=== PATIENT | female | born 1995 | race American Indian/Alaskan Native ===

== ENCOUNTER 2017-07-13 06:39 | Inpatient (IN) | payer OTHER, MEDICAID ==
[2017-07-13] MEDS ORDERED: SUBLIMAZE IV PRN (07:30)
[2017-07-13] MEDS ORDERED: BRETHINE SUB-Q PRN (07:30)
[2017-07-13] MEDS ORDERED: MINERAL OIL PO PRN (07:30)
[2017-07-13] MEDS ORDERED: ePHEDrine SULFATE IV PRN (07:30)
[2017-07-13] MEDS ORDERED: XYLOCAINE 2% INFILTRATI ONE (07:30)
[2017-07-13] MEDS ORDERED: ZOFRAN IV PRN (07:30)
--- NOTE | 2017-07-13 07:36 | History and Physical Report ---
History of Present Illness Date of examination: 07/13/17 Chief complaint: labor contractions History of present illness: EDC by third trimester u/s 07/17/17 Past History : 2 Term Births: 1 Premature Births: 0 Living Children: 1 Para: 1 Mult. Births: 0 Prev : 0 Prev. attempt? 0 Aborta: 0 Elect. Ab: 0 Spont. Ab: 0 Ectopics: 0 # 1 Delivery date: 08/11/2016 Weeks Gestation: 39 Delivery type: Vaginal Anesthesia type: none Delivery location: [facility] Infant Sex: male weight: 6.13 Comments: none Risk Factors: Smoked Tobacco Use: Never smoker Smokeless Tobacco Use: Never Passive smoke exposure: no Drug use: no HIV high-risk behavior: low risk Caffeine use: <1 drinks per day Alcohol use: no Exercise: yes Seatbelt use: 100 % Family History Risk Factors: Family History of WI in females < 65 years old: no Family History of WI in males < 55 years old: no Past Medical History: Reviewed history from 01/23/2016 and no changes required: Negative Past Medical History Past Surgical History: Reviewed history from 01/23/2016 and no changes required: Negative Past Surgical History Past Medical History Abnormal PAP: negative LIZBET Exposure: negative Infertility: negative Uterine Anomaly: negative Uterine Surgery (not C/S): negative Other Gynecologic Problems: negative Social Hx: Patient is single Smoking History: Patient has never smoked. Infection History Hx of STD: none HIV Risk Eval: low risk Hepatitis B Risk Eval: low risk Personal hx. of genital herpes: no Partner hx. of genital herpes: no Rash, Viral, or Febrile illness since last LMP? no Varicella/Chicken Pox Status: non-immune TB Risk: no Genetic History Congenital Heart Defect: Mom: no Dad: no Jamal Disease: Mom: no Dad: no Thalassemia Mom: no Dad: no Neural Tube Defect Mom: no Dad: no Down's Syndrome Mom: no Dad: no Volodymyr-Sachs Mom: no Dad: no Sickle Cell Disease/Trait Mom: no Dad: no Hemophilia Mom: no Dad: no Muscular Dystrophy Mom: no Dad: no Cystic Fibrosis Mom: no Dad: no Isabela Chorea Mom: no Dad: no Mental Retardation Mom: no Dad: no Fragile X Mom: no Dad: no Other Genetic/Chromosomal Disorder Mom: no Dad: no Child w/other defect Mom: no Dad: no Enviromental Exposures Xray Exposure: no Medication, drug, or alcohol use since LMP: no Chemical/Other Exposure: no Exposure to Cat Liter: no Hx of Parvovirus (Fifth Disease): no Occupational Exposure to Children: none Active Medications: TERCONAZOLE 0.8 % CREA (TERCONAZOLE) Insert 1 applicatorful intravaginally at bedtime for 3 consecutive days. Current Allergies: No known allergies Past History Past Medical History: no pertinent history - Obstetrical History Expected Date of Delivery: 07/17/17 Actual Gestation: 39 Week(s) 3 Day(s) : 2 Para: 1 Hx # Term Pregnancies: 1 Number of Pregnancies: 0 Spontaneous Abortions: 0 Induced : 0 Number of Living Children: 1 Medications and Allergies Allergies Allergy/AdvReac Type Severity Reaction Status Date / Time No Known Allergies Allergy Verified 08/02/16 16:28 Home Medications Medication Instructions Recorded Confirmed Last Taken Type Ibuprofen [Motrin 800 MG tab] 800 mg PO TID PRN #30 tablet 08/11/16 Unknown Rx Lidocain2.5%/Prilocai2.5% [Emla] 5 gm TP PRN #1 tube 08/11/16 Unknown Rx Review of Systems All systems: negative - Vital Signs Vital signs: Vital Signs Temp Pulse BP 96.7 F L 91 H 125/69 07/13/17 07:00 07/13/17 07:00 07/13/17 07:00 Temp Pulse Resp BP Pulse Ox 96.7 F L 94 H 136/81 99 07/13/17 07:00 07/13/17 07:27 07/13/17 07:16 07/13/17 07:27 - Physical Exam Breasts: Positive: normal Cardiovascular: Regular rate Lungs: Positive: Clear to auscultation, Normal air movement Abdomen: Positive: normal appearance, soft Genitourinary (Female): Positive: normal external genitalia, normal perenium Vulva: both: normal Vagina: Positive: normal moisture Uterus: Positive: normal size, normal contour Anus/Rectum: Positive: normal perianal skin Extremities: Positive: normal - Obstetrical Uterine Contraction Monitor Mode: External Cervical Dilatation: 5 Cervical Effacement Percentage: 80 station: -2 Uterine Contraction Frequency (min): 2-3 Uterine Contraction Duration: 50-90 Uterine Contraction Pattern: Regular Uterine Tone Measurement Phase: Contraction Uterine Contraction Intensity: Moderate Results Result Diagrams: 07/13/17 08:00 All other labs normal. Patient: SABINO TAN ID: [id number] Note: All result statuses are Final unless otherwise noted. Tests: (1) Profile I ([id number]) HBsAg Screen Negative Negative *1 Rubella Antibodies, IgG 4.47 index Immune >0.99 *2 Non-immune <0.90 Equivocal 0.90 - 0.99 Immune >0.99 ABO Grouping A *3 Rh Factor Positive *4 Please note: Prior records for this patient's ABO / Rh type are not available for additional verification. Antibody Screen Negative Negative *5 RPR Non Reactive Non Reactive *6 WBC [H] 12.3 x10E3/uL 3.4-10.8 *7 RBC 4.03 x10E6/uL 3.77-5.28 *8 Hemoglobin 12.0 g/dL 11.1-15.9 *9 Hematocrit 36.3 % 34.0-46.6 *10 MCV 90 fL 79-97 *11 MCH 29.8 pg 26.6-33.0 *12 MCHC 33.1 g/dL 31.5-35.7 *13 RDW 14.0 % 12.3-15.4 *14 Platelets 265 x10E3/uL 150-379 *15 Neutrophils 76 % *16 Lymphs 17 % *17 Monocytes 6 % *18 Eos 1 % *19 Basos 0 % *20 ! Immature Cells <No Reported Value> *21 Neutrophils (Absolute) [H] 9.2 x10E3/uL 1.4-7.0 *22 Lymphs (Absolute) 2.1 x10E3/uL 0.7-3.1 *23 Monocytes(Absolute) 0.7 x10E3/uL 0.1-0.9 *24 Eos (Absolute) 0.1 x10E3/uL 0.0-0.4 *25 Baso (Absolute) 0.0 x10E3/uL 0.0-0.2 *26 ! Immature Granulocytes 0 % *27 ! Immature Grans (Abs) 0.0 x10E3/uL 0.0-0.1 *28 ! NRBC <No Reported Value> *29 Hematology Comments: <No Reported Value> *30 Tests: (2) Cystic Fibrosis Profile ([id number]) ! CF, Screen Comment: *31 RESULTS: Negative for 32 mutations analyzed INTERPRETATION: This individual is negative for the mutations analyzed. This negative result may need further interpretation depending on the clinical indication. This result reduces but does not eliminate the risk to be a CF carrier. COMMENTS: The detection rate varies with ethnicity and is listed below. The presence of an undetected mutation in the CF gene cannot be ruled out. In the absence of family history, the remaining risk that a person with a negative result could have at least one CF mutation is listed in the table. If there is a family history of CF, these risk figures do not apply. As detailed information regarding this individual's family history would permit a more accurate assessment of this individual's risk to be a carrier of cystic fibrosis, please contact Choozle at for a revised report. Mutation Detection Detection rates are based on mutation Rates among Ethnic frequencies in patients affected with Groups cystic fibrosis. Among individuals with an atypical or mild presentation (e.g. congenital absence of the vas deferens, pancreatitis) detection rates may vary from those provided here: Carrier risk reduction when no family history Detection Ethnicity Rate Ashkenazi 11/28 to 97% Confucianist 11/27 to 90% (non-) -Serbian to 69% to 73% to 55% This interpretation is based on the clinical and family relationship information provided and the current understanding of the molecular genetics of this condition. MUTATIONS ANALYZED: G85E V520F J5952R 2183AA to G R117H G542X Y2361F 2184delA R334W S549N 394delTT 2789+5G to A R347H S549R 621+1G to T 3120+1G to A R347P G551D 711+1G to T 3659delC A455E R553X 1078delT 3849+10kbC to T SjesjN893 R560T 1717-1G to A 3876delA PervjC900 Q0247V 1898+1G to A 3905insT METHODS/LIMITATIONS: DNA is isolated from the sample and tested for the 32 CF mutations on the [place] Array Platform ([employer]). Regions of the CFTR gene are amplified enzymatically and subjected to a solution-phase multiplex allele-specific primer extension with subsequent hybridization to a bead array and fluorescence detection. Polymorphisms F508C, I506V and I507V are included in this panel to rule out false positive disfmR914 homozygotes. Reflex testing of 5T is included in the panel for R117H interpretation. False positive or negative results may occur for reasons that include genetic variants, blood transfusions, bone marrow transplantation, erroneous representation of family relationships or contamination of a sample with maternal cells. REFERENCES: 1. Updates on Carrier Screening for Cystic Fibrosis. (2011) Am J Ob Gynecol 117(4):0394-6293 2. See et al. (2004) Kat Med 6:387-91 3. Rony, et al. (2002) Kat Med 4:379-391 4. Preconception and carrier screening for cystic fibrosis: (2001)ACOG.ACMG publication Results Released By: Mj Portillo M.D., Frame Stylist Report Released By: Mj Portillo M.D., Frame Stylist ! Comment: SPRCS *32 The assay provides information intended to be used for carrier screening in adults of reproductive age, as an aid in screening, and as a confirmatory test for another medically established diagnosis in newborns and children. The test is not indicated for use in diagnostic testing, pre-implantation screening, or for any stand-alone diagnostic purposes without confirmation by another medically established diagnostic product or procedure. Tests: (3) HB Solu + Rflx Fra ([id number]) Hemoglobin (Hgb) Solubility Negative Negative *33 Tests: (4) Panel 575913 (580054) HIV Screen 4th Generation wRfx Non Reactive Non Reactive *34 Tests: (5) HCV Ab w/Rflx to Verification (253210) ! HCV Ab <0.1 s/co ratio 0.0-0.9 *35 Assessment and Plan 22 y/o @ 39+3, GBS neg, in active labor. orders in EMR. Anticipate . Dr. Haynes aware of patient's admission and status. - Patient Problems (1) 39 weeks gestation of Current Visit: No Status: Acute (2) Active labor Onset Date: 08/11/16 Current Visit: No Status: Acute
[2017-07-13] MEDS ORDERED: PITOCin/NS 20 UNIT/1000ML DRIP 20 UNITS/1,000 ML BAG IV SCH ×2 (08:00→15:50)
[2017-07-13] MEDS ORDERED: PITOCin/NS 30 UNIT/500ML 30 UNITS/500 ML BAG IV SCH (08:00)
[2017-07-13] MEDS ORDERED: LACTATED RINGERS 1,000 ML IV SCH (08:00)
[2017-07-13 08:25] LABS: Hematocrit 35.3 % (30.3-42.9); Hemoglobin 11.5 gm/dl (10.1-14.3); Mean Corpuscular HGB Conc 33 % (30-34); Mean Corpuscular Hemoglobin 28 pg (28-32); Mean Corpuscular Volume 86 fl (79-97); Platelet Count 261 K/mm3 (140-440); Red Blood Count 4.09 M/mm3 (3.65-5.03); White Blood Count 9.3 K/mm3 (4.5-11.0)
--- NOTE | 2017-07-13 10:22 | Progress Note ---
Assessment and Plan patient tolerating labor well, SVE 7/80/-1, AROM clear fluid. Continue current management, anticipate delivery. - Patient Problems (1) 39 weeks gestation of Current Visit: Yes Status: Acute (2) Active labor Onset Date: 08/11/16 Current Visit: Yes Status: Acute Subjective - Subjective Date of service: 07/13/17 Principal diagnosis: labor @ 39+3 Interval history: EDC by third trimester u/s 07/17/17 Past History : 2 Term Births: 1 Premature Births: 0 Living Children: 1 Para: 1 Mult. Births: 0 Prev : 0 Prev. attempt? 0 Aborta: 0 Elect. Ab: 0 Spont. Ab: 0 Ectopics: 0 # 1 Delivery date: 08/11/2016 Weeks Gestation: 39 Delivery type: Vaginal Anesthesia type: none Delivery location: [facility] Infant Sex: male weight: 6.13 Comments: none Risk Factors: Smoked Tobacco Use: Never smoker Smokeless Tobacco Use: Never Passive smoke exposure: no Drug use: no HIV high-risk behavior: low risk Caffeine use: <1 drinks per day Alcohol use: no Exercise: yes Seatbelt use: 100 % Family History Risk Factors: Family History of VT in females < 65 years old: no Family History of VT in males < 55 years old: no Past Medical History: Reviewed history from 01/23/2016 and no changes required: Negative Past Medical History Past Surgical History: Reviewed history from 01/23/2016 and no changes required: Negative Past Surgical History Past Medical History Abnormal PAP: negative LIZBET Exposure: negative Infertility: negative Uterine Anomaly: negative Uterine Surgery (not C/S): negative Other Gynecologic Problems: negative Social Hx: Patient is single Smoking History: Patient has never smoked. Infection History Hx of STD: none HIV Risk Eval: low risk Hepatitis B Risk Eval: low risk Personal hx. of genital herpes: no Partner hx. of genital herpes: no Rash, Viral, or Febrile illness since last LMP? no Varicella/Chicken Pox Status: non-immune TB Risk: no Genetic History Congenital Heart Defect: Mom: no Dad: no Jamal Disease: Mom: no Dad: no Thalassemia Mom: no Dad: no Neural Tube Defect Mom: no Dad: no Down's Syndrome Mom: no Dad: no Volodymyr-Sachs Mom: no Dad: no Sickle Cell Disease/Trait Mom: no Dad: no Hemophilia Mom: no Dad: no Muscular Dystrophy Mom: no Dad: no Cystic Fibrosis Mom: no Dad: no [place] Chorea Mom: no Dad: no Mental Retardation Mom: no Dad: no Fragile X Mom: no Dad: no Other Genetic/Chromosomal Disorder Mom: no Dad: no Child w/other defect Mom: no Dad: no Enviromental Exposures Xray Exposure: no Medication, drug, or alcohol use since LMP: no Chemical/Other Exposure: no Exposure to Cat Liter: no Hx of Parvovirus (Fifth Disease): no Occupational Exposure to Children: none Active Medications: TERCONAZOLE 0.8 % CREA (TERCONAZOLE) Insert 1 applicatorful intravaginally at bedtime for 3 consecutive days. Current Allergies: No known allergies Patient reports: contractions Objective - Vital Signs Vital Signs: Vital Signs - 12hr 07/13/17 07/13/17 07/13/17 07:00 07:01 07:04 Temperature 96.7 F L Pulse Rate 90 86 90 Respiratory Rate Blood Pressure 152/84 125/69 Blood Pressure 125/69 [Left] Blood Pressure [Right] O2 Sat by Pulse 98 Oximetry 07/13/17 07/13/17 07/13/17 07:06 07:07 07:12 Temperature Pulse Rate 91 H 87 91 H Respiratory Rate Blood Pressure Blood Pressure [Left] Blood Pressure [Right] O2 Sat by Pulse 93 98 98 Oximetry 07/13/17 07/13/17 07/13/17 07:16 07:17 07:22 Temperature Pulse Rate 94 H 103 H 90 Respiratory Rate Blood Pressure 136/81 Blood Pressure [Left] Blood Pressure [Right] O2 Sat by Pulse 99 95 Oximetry 07/13/17 07/13/17 07/13/17 07:27 07:42 07:46 Temperature Pulse Rate 94 H 88 93 H Respiratory Rate Blood Pressure Blood Pressure [Left] Blood Pressure [Right] O2 Sat by Pulse 99 99 94 Oximetry 07/13/17 07/13/17 07/13/17 07:47 07:51 07:52 Temperature Pulse Rate 95 H 93 H 88 Respiratory Rate Blood Pressure Blood Pressure [Left] Blood Pressure [Right] O2 Sat by Pulse 97 89 97 Oximetry 07/13/17 07/13/17 07/13/17 07:57 08:02 08:04 Temperature 97.0 F L Pulse Rate 84 86 82 Respiratory 16 Rate Blood Pressure 118/74 Blood Pressure [Left] Blood Pressure 118/74 [Right] O2 Sat by Pulse 95 100 Oximetry 07/13/17 07/13/17 07/13/17 08:07 08:11 08:12 Temperature Pulse Rate 87 87 86 Respiratory Rate Blood Pressure Blood Pressure [Left] Blood Pressure [Right] O2 Sat by Pulse 99 94 96 Oximetry 07/13/17 07/13/17 07/13/17 08:17 08:21 08:22 Temperature Pulse Rate 86 96 H 93 H Respiratory Rate Blood Pressure Blood Pressure [Left] Blood Pressure [Right] O2 Sat by Pulse 97 91 98 Oximetry 07/13/17 07/13/17 07/13/17 08:27 08:32 08:37 Temperature Pulse Rate 104 H 86 89 Respiratory Rate Blood Pressure Blood Pressure [Left] Blood Pressure [Right] O2 Sat by Pulse 96 97 96 Oximetry 07/13/17 07/13/17 07/13/17 08:42 08:47 08:52 Temperature Pulse Rate 95 H 89 91 H Respiratory Rate Blood Pressure Blood Pressure [Left] Blood Pressure [Right] O2 Sat by Pulse 96 97 97 Oximetry 07/13/17 07/13/17 08:57 09:02 Temperature Pulse Rate 87 98 H Respiratory Rate Blood Pressure Blood Pressure [Left] Blood Pressure [Right] O2 Sat by Pulse 99 99 Oximetry - Exam Breasts: normal Cardiovascular: Regular rate Lungs: Clear to auscultation, Normal air movement Abdomen: Present: normal appearance, soft Vulva: both: normal Uterus: Present: normal FHR: auscultation normal, category 1 Uterine Contraction Monitor Mode: External Cervical Dilatation: 7 Cervical Effacement Percentage: 80 station: -1 Uterine Contraction Pattern: Regular Uterine Tone Measurement Phase: Contraction Uterine Contraction Intensity: Strong/Firm Extremities: normal Deep Tendon Reflex Grade: Normal +2 - Labs Labs: Laboratory Results - last 24 hr 07/13/17 07/13/17 08:00 08:00 WBC 9.3 RBC 4.09 Hgb 11.5 Hct 35.3 MCV 86 MCH 28 MCHC 33 RDW 15.0 Plt Count 261 Blood Type A POSITIVE Antibody Screen Negative
--- NOTE | 2017-07-13 13:30 | Procedure Note ---
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 Infant placed skin to skin on mother' s abd, cord clamped and cut. Cord blood collected. Placenta del intact and complete. no lacerations to repair. Pit to IVF. EBL 300, wt 7#7oz, 8/9 apgars. Mother and LDR stable. - A at 1 minute: 8 at 5 minutes: 9 Infant Gender: Male (7#7oz)
[2017-07-13] MEDS ORDERED: BENADRYL PO PRN (15:50)
[2017-07-13] MEDS ORDERED: MILK OF MAGNESIA PO PRN (15:50)
[2017-07-13] MEDS ORDERED: SODIUM CHLORIDE FLUSH SYRINGE 10 ML IV NR (15:50)
[2017-07-13] MEDS ORDERED: PHENERGAN PO PRN (15:50)
[2017-07-13] MEDS ORDERED: TUCKS PAD TP PRN (15:50)
[2017-07-13] MEDS ORDERED: LANSINOH TP PRN (15:50)
[2017-07-13] MEDS ORDERED: NORCO 5/325 PO PRN (15:50)
[2017-07-13] MEDS ORDERED: DULCOLAX PR PRN (15:50)
[2017-07-13] MEDS ORDERED: MOTRIN PO SCH (15:50)
[2017-07-13] MEDS ORDERED: TYLENOL PO PRN (15:50)
[2017-07-13] MEDS: MOTRIN PO SCH (23:42)
[2017-07-13] MEDS: COLACE PO SCH (23:42)
[2017-07-14 01:34] LABS: Hematocrit 30.6 % (30.3-42.9); Hemoglobin 10.3 gm/dl (10.1-14.3)
[2017-07-14] MEDS: MOTRIN PO SCH ×3 (06:17→22:18)
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
[2017-07-14] MEDS ORDERED: PRENATAL VITAMIN PO SCH (10:00)
[2017-07-14] MEDS ORDERED: BOOSTRIX IM ONE (13:30)
[2017-07-14] MEDS: COLACE PO SCH (22:19)
[2017-07-15] MEDS: MOTRIN PO SCH (05:29)
[2017-07-15 11:45] VITALS: BP 110/68
== END 2017-07-15 11:30 | disposition home or self-care (01) | DRG 775 ==
LOC: TRG 06:39 → LD 07:35 → OB 14:54
PROVIDERS: ADMIT Obstetrics & Gynecology; ATTEND Obstetrics & Gynecology
PROC: 10E0XZZ Delivery of Products of Conception, External Approach (ICD-10-PCS; principal; 2017-07-13)
PROC: 3E0234Z Introduction of Serum, Toxoid and Vaccine into Muscle, Percutaneous Approach (ICD-10-PCS; 2017-07-13)
DX: O80 Encounter for full-term uncomplicated delivery (principal); Z37.0 Single live birth; Z3A.39 39 weeks gestation of pregnancy; Z79.899 Other long term (current) drug therapy; Z23 Encounter for immunization
CPT/HCPCS: 36415; 85014; 85018; 85027; 86592; 86850; 86900; 86901; 99211; A6250; G0463; J2590; J3010; J7120

== ENCOUNTER 2019-05-12 09:15 | Emergency (ER) | payer MEDICAID, OTHER ==
[2019-05-12 09:30] VITALS: BP 115/79
[2019-05-12] MEDS ORDERED: IBUPROFEN PO ONE (10:34)
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
--- NOTE | 2019-05-12 11:09 | XRay Report ---
RIGHT LITTLE FINGER 3 VIEWS INDICATION / CLINICAL INFORMATION: Injury with right little finger pain and swelling. COMPARISON: None available. FINDINGS: BONES / JOINT(S): There is posterior dislocation of the middle phalanx of the little finger at the PI P joint. There is an associated minimally displaced fracture involving the base of the middle phalanx posteriorly. No significant arthritis. SOFT TISSUES: No significant abnormality. ADDITIONAL FINDINGS: None. IMPRESSION: Posterior dislocation/fracture involving the PIP joint of the little finger. Signer Name: Patrick Williamson MD Signed: 05/12/2019 11:05 AM Workstation Name: [id number]
== END 2019-05-12 11:40 | disposition home or self-care (01) ==
LOC: ED 09:15
DX: S62.614A Displaced fracture of proximal phalanx of right ring finger, initial encounter for closed fracture (principal); Z79.899 Other long term (current) drug therapy; Y04.8XXA Assault by other bodily force, initial encounter; Y93.89 Activity, other specified; Y92.099 Unspecified place in other non-institutional residence as the place of occurrence of the external cause; Y99.8 Other external cause status
CPT/HCPCS: 99283

== ENCOUNTER 2021-07-26 21:45 | Inpatient (IN) | payer MEDICAID ==
[2021-07-27] MEDS ORDERED: TERBUTALINE 1 MG/1 ML INJ SUB-Q PRN (01:09)
[2021-07-27] MEDS ORDERED: CARBOPROST TROMETHAMINE 250 MCG/1 ML INJ IM PRN (01:09)
[2021-07-27] MEDS ORDERED: AMPICILLIN/NS 2 GM/100 ML 2 GM/100 ML BAG IV ONE (01:09)
[2021-07-27] MEDS ORDERED: ePHEDrine SULFATE 50 MG/1 ML INJ IV PRN (01:09)
[2021-07-27] MEDS ORDERED: ONDANSETRON 4 MG/2 ML INJ IV PRN ×2 (01:09→21:01)
[2021-07-27] MEDS ORDERED: miSOPROStol 200 MCG TAB PR PRN (01:09)
[2021-07-27] MEDS ORDERED: fentaNYL 100 MCG/2 ML INJ IV PRN (01:09)
[2021-07-27] MEDS ORDERED: NalbUPHINE 10 MG/1 ML INJ IV PRN (01:09)
[2021-07-27] MEDS ORDERED: MINERAL OIL 30 ML ORAL LIQD PO PRN (01:09)
[2021-07-27] MEDS ORDERED: LIDOCAINE (2%) 20 MG/1 ML VIAL 20 ML MDV INFILTRATI ONE (01:09)
[2021-07-27] MEDS ORDERED: LOPERAMIDE 2 MG CAP PO PRN (01:09)
[2021-07-27] MEDS ORDERED: OXYTOCIN 10 UNIT/1 ML INJ IM PRN (01:09)
[2021-07-27] MEDS ORDERED: METHYLERGONOVINE MALEATE 0.2 MG/ML VIAL IM PRN (01:09)
[2021-07-27] MEDS ORDERED: ACETAMINOPHEN 325 MG TAB PO PRN ×2 (01:09→21:01)
[2021-07-27] MEDS ORDERED: LACTATED RINGERS 1,000 ML IV SCH (01:15)
--- NOTE | 2021-07-27 01:17 | History and Physical Report ---
History of Present Illness Date of examination: 07/27/21 Chief complaint: decreased fm x 24hrs; oligohydramnios History of present illness: EDC Confirmation: 07/24/2021 Past History : 3 Term Births: 2 Premature Births: 0 Living Children: 2 Para: 2 Mult. Births: 0 Prev : 0 Prev. attempt? 0 Aborta: 0 Elect. Ab: 0 Spont. Ab: 0 Ectopics: 0 # 1 Delivery date: 08/11/2016 Weeks Gestation: 39 Delivery type: Vaginal Anesthesia type: none Delivery location: [facility] [place] Sex: male weight: 6.13 Comments: none # 2 Delivery date: 07/13/2017 Weeks Gestation: 39+3 Delivery type: Vaginal Anesthesia type: none Delivery location: [facility] [place] Infant Sex: male weight: 7.44 Name: Rai Comments: none Past Medical History: Reviewed history from 01/23/2016 and no changes required: Negative Past Medical History Past Surgical History: Reviewed history from 01/23/2016 and no changes required: Negative Past Surgical History Past Medical History Abnormal PAP: negative LIZBET Exposure: negative Infertility: negative Uterine Anomaly: negative Uterine Surgery (not C/S): negative Other Gynecologic Problems: negative Social Hx: Patient is single Smoking History: Patient has never smoked. Infection History Hx of STD: none HIV Risk Eval: low risk Hepatitis B Risk Eval: low risk Personal hx. of genital herpes: no Partner hx. of genital herpes: no Rash, Viral, or Febrile illness since last LMP? no Varicella/Chicken Pox Status: Immunized Genetic History Congenital Heart Defect: Mom: no Dad: no Jamal Disease: Mom: no Dad: no Thalassemia Mom: no Dad: no Neural Tube Defect Mom: no Dad: no Down's Syndrome Mom: no Dad: no Volodymyr-Sachs Mom: no Dad: no Sickle Cell Disease/Trait Mom: no Dad: no Hemophilia Mom: no Dad: no Muscular Dystrophy Mom: no Dad: no Cystic Fibrosis Mom: no Dad: no [place] Chorea Mom: no Dad: no Mental Retardation Mom: no Dad: no Fragile X Mom: no Dad: no Other Genetic/Chromosomal Disorder Mom: no Dad: no Child w/other defect Mom: no Dad: no Enviromental Exposures Xray Exposure: no Medication, drug, or alcohol use since LMP: no Chemical/Other Exposure: no Exposure to Cat Liter: no Hx of Parvovirus (Fifth Disease): no Occupational Exposure to Children: none Active Medications (reviewed today): PLUS 27-1 MG ORAL TABLET ( VIT-FE FUMARATE-FA) 1 po daily Current Allergies (reviewed today): No known allergies Past History Past Medical History: other (see HPI) Past Surgical History: other (see HPI) 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) Family/Genetic History: other (see HPI) Social history: no significant social history, lives with family - Obstetrical History Expected Date of Delivery: 07/24/21 Actual Gestation: 40 Week(s) 3 Day(s) : 3 Para: 2 Hx # Term Pregnancies: 2 Number of Pregnancies: 0 Spontaneous Abortions: 0 Induced : 0 Number of Living Children: 2 Medications and Allergies Allergies Allergy/AdvReac Type Severity Reaction Status Date / Time No Known Allergies Allergy Verified 08/02/16 16:28 Home Medications Medication Instructions Recorded Confirmed Last Taken Type Ibuprofen [Motrin 800 MG tab] 800 mg PO TID PRN #30 tablet 08/11/16 07/15/17 Unknown Rx Lidocain2.5%/Prilocai2.5% [Emla] 5 gm TP PRN #1 tube 08/11/16 07/15/17 Unknown Rx Lidocain2.5%/Prilocai2.5% [Emla] 5 gm TP ONCE PRN #1 tube 07/13/17 Unknown Rx Ibuprofen [Motrin 800 MG tab] 800 mg PO Q8HR PRN #30 tablet 05/12/19 Unknown Rx Active Meds: Active Medications Acetaminophen (Acetaminophen 325 Mg Tab) 650 mg PO Q4H PRN PRN Reason: Pain, Mild (1-3) Carboprost Tromethamine (Carboprost Tromethamine 250 Mcg/1 Ml Inj) 250 mcg IM ONCE PRN PRN Reason: Uterine Bleeding Ephedrine Sulfate (Ephedrine Sulfate 50 Mg/1 Ml Inj) 10 mg IV Q2M PRN PRN Reason: Hypotension Fentanyl (Fentanyl 100 Mcg/2 Ml Inj) 100 mcg IV Q2H PRN PRN Reason: Pain,Severe (7-10) LABOR PAIN Oxytocin/Sodium Chloride (Pitocin/Ns 30 Unit/500ml) 30 units in 500 mls @ 2 mls/hr IV TITR LYNN; Protocol Lactated Ringer's (Lactated Ringers) 1,000 mls @ 125 mls/hr IV DIRECT LYNN Oxytocin/Sodium Chloride (Pitocin/Ns 30 Unit/500ml) 30 units in 500 mls @ 40 mls/hr IV TITR LYNN; Protocol Ampicillin Sodium (Ampicillin/Ns 2 Gm/100 Ml) 2 gm in 100 mls @ 100 mls/hr IV ONCE ONE; Protocol Stop: 07/27/21 02:08 Ampicillin Sodium (Ampicillin/Ns 1 Gm/50 Ml) 1 gm in 50 mls @ 100 mls/hr IV Q4H LYNN; Protocol Lidocaine (Lidocaine (2%) 20 Mg/1 Ml Vial 20 Ml Mdv) 20 ml INFILTRATI ONCE ONE Stop: 07/27/21 01:10 Loperamide HCl (Loperamide 2 Mg Cap) 2 mg PO ONCE PRN PRN Reason: give with Hemabate Methylergonovine Maleate (Methylergonovine Maleate 0.2 Mg/Ml Vial) 0.2 mg IM ONCE PRN PRN Reason: Uterine Bleeding Mineral Oil (Mineral Oil 30 Ml Oral Liqd) 30 ml PO QHS PRN PRN Reason: Constipation Misoprostol (Misoprostol 200 Mcg Tab) 800 mcg UT ONCE PRN PRN Reason: Uterine Bleeding Nalbuphine HCl (Nalbuphine 10 Mg/1 Ml Inj) 10 mg IV Q2H PRN PRN Reason: Pain, Moderate (4-6) Ondansetron HCl (Ondansetron 4 Mg/2 Ml Inj) 4 mg IV Q8H PRN PRN Reason: Nausea And Vomiting Oxytocin (Oxytocin 10 Unit/1 Ml Inj) 10 unit IM ONCE PRN PRN Reason: Uterine Bleeding Terbutaline Sulfate (Terbutaline 1 Mg/1 Ml Inj) 0.25 mg SUB-Q ONCE PRN PRN Reason: Hyperstimulation/Hypertonicity Review of Systems All systems: negative - Vital Signs Vital signs: Vital Signs Pulse Pulse Ox 85 99 07/26/21 22:07 07/26/21 22:07 Temp Pulse Resp BP Pulse Ox 98.3 F 78 18 111/73 99 07/26/21 22:09 07/27/21 01:12 07/26/21 22:09 07/26/21 22:09 07/27/21 01:12 - Physical Exam Breasts: Positive: normal Cardiovascular: Regular rate Lungs: Positive: Normal air movement Abdomen: Positive: normal appearance, soft Genitourinary (Female): Positive: normal external genitalia, normal perenium Vulva: both: normal Vagina: Positive: normal moisture Uterus: Positive: normal size Anus/Rectum: Positive: normal perianal skin Extremities: Positive: normal - Obstetrical Uterine Contraction Monitor Mode: External Cervical Dilatation: 2.5 (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 Assessment and Plan 26y/o presented with decreased FM @ 40w3d. u/s findings show oligohydramnios ( JAE 3) EFW 6#3, vertex. Pt admitted for IOL. complicated by insufficient care starting @ 33wks until now d/t insurance issues. GBS unknown. Admission orders in EMR. - Patient Problems (1) GBS screening not performed Current Visit: Yes Status: Acute Plan to address problem: Ampicillin q4hrs until delivery (2) 40 weeks gestation of Current Visit: Yes Status: Acute (3) Limited care in third trimester Current Visit: Yes Status: Acute (4) Oligohydramnios Onset Date: ~07/27/21 Current Visit: Yes Status: Acute Qualifiers: Fetus number: single or unspecified fetus Trimester: third trimester Qualified Code(s): O41.03X0 - Oligohydramnios, third trimester, not applicable or unspecified
[2021-07-27 01:57] LABS: Hematocrit 37.2 % (30.3-42.9); Hemoglobin 12.7 gm/dl (10.1-14.3); Mean Corpuscular HGB Conc 34 % (30-34); Mean Corpuscular Volume 91 fl (79-97); Platelet Count 240 K/mm3 (140-440); Red Blood Count 4.11 M/mm3 (3.65-5.03); Red Cell Distribution Width 14.4 % (13.2-15.2)
[2021-07-27] MEDS ORDERED: OXYTOCIN DRIP 30 UNITS/500 ML BAG IV SCH ×2 (02:00)
--- NOTE | 2021-07-27 02:04 | Ultrasound Report ---
ULTRASOUND BIOPHYSICAL PROFILE INDICATION / CLINICAL INFORMATION: wellbeing. COMPARISON: None available. FINDINGS: BREATHING MOVEMENT = 2 GROSS BODY MOVEMENT = 2 TONE = 2 QUALITATIVE AMNIOTIC FLUID VOLUME = 0 TOTAL BIOPHYSICAL SCORE = 6/8 AMNIOTIC FLUID INDEX (cm) = 3.6 PRESENTATION: Cephalic. HEART RATE (beats per minute): 131 IMPRESSION: 1. Single live IUP in cephalic presentation. heart rate measures 131 bpm. 2. biophysical profile = 6/8 , due to diminished amniotic fluid volume. JAE measures 3.6 cm. Signer Name: Manuel Ruiz MD Signed: 07/27/2021 2:00 AM Workstation Name: [id number]
[2021-07-27] MEDS: AMPICILLIN/NS 1 GM/50 ML 1 GM/50 ML BAG IV SCH ×4 (07:56→19:31)
--- NOTE | 2021-07-27 07:57 | Progress Note ---
Assessment and Plan Pt lying in bed without complaints. Pt reports feeling mild contractions. Declines need for pharmacological pain management at this time. POC and nonpharmacological labor pain management options discussed with pt, FOC, and Julia RN at bedside. FHT's Cat 1 at this time and need for continuous monitoring reviewed. Risks and benefits of Pitocin IOL with GBS prophylaxis treatment discussed in length, including but not limited to risk for infection, distress, trauma, shoulder dystocia, delivery, maternal or . Pt verbalizes understanding and agrees to proceed with IOL at this time. Pt agrees to SVE; 4.5/50/-2. White vaginal discharge with tiny vaginal bleeding spots x2 visualized on exam glove. Vaginal discharge on glove shown to pt and RN and discussed. Plan to continue with IOL per protocol, monitor pt continuously, and notify provider with any changes in status. Julia RN and pt verbalize understanding and agree to POC. Anticipate . Dr. Espinoza made aware. - Patient Problems (1) 40 weeks gestation of Current Visit: Yes Status: Acute (2) GBS screening not performed Current Visit: Yes Status: Acute Plan to address problem: Ampicillin q4h until delivery (3) Limited care in third trimester Current Visit: Yes Status: Acute Plan to address problem: monitor closely and per protocol (4) Oligohydramnios Onset Date: ~07/27/21 Current Visit: Yes Status: Acute Qualifiers: Fetus number: single or unspecified fetus Trimester: third trimester Qualified Code(s): O41.03X0 - Oligohydramnios, third trimester, not applicable or unspecified Plan to address problem: continuous monitoring notify provider with any changes in status Subjective - Subjective Date of service: 07/27/21 Principal diagnosis: IUP @40.3 weeks, IOL for Oligo, GBS UNK, Insufficient PNC Patient reports: movement normal, contractions, no new complaints, no loss of fluid Objective - Vital Signs Vital Signs: Vital Signs - 12hr 07/26/21 07/26/21 07/26/21 22:07 22:08 22:09 Temperature 98.3 F Pulse Rate 85 82 82 Respiratory 18 Rate Blood Pressure 111/73 Blood Pressure [Left] Blood Pressure 111/73 [Right] O2 Sat by Pulse 99 98 Oximetry O2 Sat by Pulse Oximetry [ Bilateral Throughout] 09/23/21 09/23/21 09/23/21 22:12 22:17 22:22 Temperature Pulse Rate 92 H 83 78 Respiratory Rate Blood Pressure Blood Pressure [Left] Blood Pressure [Right] O2 Sat by Pulse 99 98 99 Oximetry O2 Sat by Pulse Oximetry [ Bilateral Throughout] 07/26/21 07/26/21 07/26/21 22:27 22:32 22:37 Temperature Pulse Rate 97 H 84 90 Respiratory Rate Blood Pressure Blood Pressure [Left] Blood Pressure [Right] O2 Sat by Pulse 98 98 96 Oximetry O2 Sat by Pulse Oximetry [ Bilateral Throughout] 07/26/21 07/26/21 07/26/21 22:42 22:47 22:52 Temperature Pulse Rate 84 77 88 Respiratory Rate Blood Pressure Blood Pressure [Left] Blood Pressure [Right] O2 Sat by Pulse 98 97 98 Oximetry O2 Sat by Pulse Oximetry [ Bilateral Throughout] 07/26/21 07/26/21 07/26/21 22:57 23:02 23:07 Temperature Pulse Rate 84 85 82 Respiratory Rate Blood Pressure Blood Pressure [Left] Blood Pressure [Right] O2 Sat by Pulse 98 98 98 Oximetry O2 Sat by Pulse Oximetry [ Bilateral Throughout] 07/26/21 07/26/21 07/26/21 23:12 23:17 23:22 Temperature Pulse Rate 79 86 82 Respiratory Rate Blood Pressure Blood Pressure [Left] Blood Pressure [Right] O2 Sat by Pulse 98 97 98 Oximetry O2 Sat by Pulse Oximetry [ Bilateral Throughout] 07/26/21 07/26/21 07/26/21 23:27 23:32 23:37 Temperature Pulse Rate 74 78 75 Respiratory Rate Blood Pressure Blood Pressure [Left] Blood Pressure [Right] O2 Sat by Pulse 98 98 98 Oximetry O2 Sat by Pulse Oximetry [ Bilateral Throughout] 07/26/21 07/26/21 07/26/21 23:42 23:47 23:52 Temperature Pulse Rate 78 83 86 Respiratory Rate Blood Pressure Blood Pressure [Left] Blood Pressure [Right] O2 Sat by Pulse 98 97 97 Oximetry O2 Sat by Pulse Oximetry [ Bilateral Throughout] 07/26/21 07/27/21 07/27/21 23:57 00:02 00:07 Temperature Pulse Rate 77 77 77 Respiratory Rate Blood Pressure Blood Pressure [Left] Blood Pressure [Right] O2 Sat by Pulse 97 97 97 Oximetry O2 Sat by Pulse Oximetry [ Bilateral Throughout] 07/27/21 07/27/21 07/27/21 00:12 00:17 00:22 Temperature Pulse Rate 78 80 89 Respiratory Rate Blood Pressure Blood Pressure [Left] Blood Pressure [Right] O2 Sat by Pulse 97 98 98 Oximetry O2 Sat by Pulse Oximetry [ Bilateral Throughout] 07/27/21 07/27/21 07/27/21 00:27 00:32 00:37 Temperature Pulse Rate 88 79 78 Respiratory Rate Blood Pressure Blood Pressure [Left] Blood Pressure [Right] O2 Sat by Pulse 99 97 97 Oximetry O2 Sat by Pulse Oximetry [ Bilateral Throughout] 07/27/21 07/27/21 07/27/21 00:42 00:47 00:52 Temperature Pulse Rate 79 81 90 Respiratory Rate Blood Pressure Blood Pressure [Left] Blood Pressure [Right] O2 Sat by Pulse 97 99 98 Oximetry O2 Sat by Pulse Oximetry [ Bilateral Throughout] 07/27/21 07/27/21 07/27/21 00:57 01:02 01:07 Temperature Pulse Rate 81 83 79 Respiratory Rate Blood Pressure Blood Pressure [Left] Blood Pressure [Right] O2 Sat by Pulse 98 98 97 Oximetry O2 Sat by Pulse Oximetry [ Bilateral Throughout] 07/27/21 07/27/21 07/27/21 01:12 02:42 02:47 Temperature Pulse Rate 78 83 75 Respiratory Rate Blood Pressure Blood Pressure [Left] Blood Pressure [Right] O2 Sat by Pulse 99 98 98 Oximetry O2 Sat by Pulse Oximetry [ Bilateral Throughout] 07/27/21 07/27/21 07/27/21 02:52 02:57 03:02 Temperature Pulse Rate 79 91 H 84 Respiratory Rate Blood Pressure Blood Pressure [Left] Blood Pressure [Right] O2 Sat by Pulse 98 97 98 Oximetry O2 Sat by Pulse Oximetry [ Bilateral Throughout] 07/27/21 07/27/21 07/27/21 03:07 03:12 03:17 Temperature Pulse Rate 86 82 84 Respiratory Rate Blood Pressure Blood Pressure [Left] Blood Pressure [Right] O2 Sat by Pulse 97 97 99 Oximetry O2 Sat by Pulse Oximetry [ Bilateral Throughout] 07/27/21 07/27/21 07/27/21 03:22 03:27 03:32 Temperature Pulse Rate 85 88 81 Respiratory Rate Blood Pressure Blood Pressure [Left] Blood Pressure [Right] O2 Sat by Pulse 98 97 97 Oximetry O2 Sat by Pulse Oximetry [ Bilateral Throughout] 07/27/21 07/27/21 07/27/21 03:37 03:42 03:47 Temperature Pulse Rate 84 79 84 Respiratory Rate Blood Pressure Blood Pressure [Left] Blood Pressure [Right] O2 Sat by Pulse 97 98 97 Oximetry O2 Sat by Pulse Oximetry [ Bilateral Throughout] 07/27/21 07/27/21 07/27/21 03:49 03:52 03:57 Temperature Pulse Rate 75 74 91 H Respiratory Rate Blood Pressure 119/66 Blood Pressure [Left] Blood Pressure [Right] O2 Sat by Pulse 97 96 Oximetry O2 Sat by Pulse Oximetry [ Bilateral Throughout] 07/27/21 07/27/21 07/27/21 04:01 04:02 04:07 Temperature 98.5 F Pulse Rate 77 74 Respiratory Rate Blood Pressure Blood Pressure [Left] Blood Pressure [Right] O2 Sat by Pulse 98 97 Oximetry O2 Sat by Pulse 97 Oximetry [ Bilateral Throughout] 07/27/21 07/27/21 07/27/21 04:12 04:17 04:22 Temperature Pulse Rate 94 H 95 H 82 Respiratory Rate Blood Pressure Blood Pressure [Left] Blood Pressure [Right] O2 Sat by Pulse 99 99 98 Oximetry O2 Sat by Pulse Oximetry [ Bilateral Throughout] 07/27/21 07/27/21 07/27/21 04:27 04:32 04:37 Temperature Pulse Rate 66 75 75 Respiratory Rate Blood Pressure Blood Pressure [Left] Blood Pressure [Right] O2 Sat by Pulse 98 98 98 Oximetry O2 Sat by Pulse Oximetry [ Bilateral Throughout] 07/27/21 07/27/21 07/27/21 04:42 04:47 04:52 Temperature Pulse Rate 90 81 86 Respiratory Rate Blood Pressure Blood Pressure [Left] Blood Pressure [Right] O2 Sat by Pulse 99 99 99 Oximetry O2 Sat by Pulse Oximetry [ Bilateral Throughout] 07/27/21 07/27/21 07/27/21 04:57 05:02 05:07 Temperature Pulse Rate 94 H 90 87 Respiratory Rate Blood Pressure Blood Pressure [Left] Blood Pressure [Right] O2 Sat by Pulse 98 98 98 Oximetry O2 Sat by Pulse Oximetry [ Bilateral Throughout] 07/27/21 07/27/21 07/27/21 05:12 05:17 05:22 Temperature Pulse Rate 84 83 86 Respiratory Rate Blood Pressure Blood Pressure [Left] Blood Pressure [Right] O2 Sat by Pulse 99 97 97 Oximetry O2 Sat by Pulse Oximetry [ Bilateral Throughout] 07/27/21 07/27/21 07/27/21 05:27 05:32 05:37 Temperature Pulse Rate 75 78 77 Respiratory Rate Blood Pressure Blood Pressure [Left] Blood Pressure [Right] O2 Sat by Pulse 96 98 98 Oximetry O2 Sat by Pulse Oximetry [ Bilateral Throughout] 07/27/21 07/27/21 07/27/21 05:42 05:47 05:52 Temperature Pulse Rate 99 H 98 H 80 Respiratory Rate Blood Pressure Blood Pressure [Left] Blood Pressure [Right] O2 Sat by Pulse 97 98 99 Oximetry O2 Sat by Pulse Oximetry [ Bilateral Throughout] 07/27/21 07/27/21 07/27/21 05:57 06:02 06:07 Temperature Pulse Rate 79 80 87 Respiratory Rate Blood Pressure Blood Pressure [Left] Blood Pressure [Right] O2 Sat by Pulse 99 99 99 Oximetry O2 Sat by Pulse Oximetry [ Bilateral Throughout] 07/27/21 07/27/21 07/27/21 06:12 06:17 06:22 Temperature Pulse Rate 83 97 H 90 Respiratory Rate Blood Pressure Blood Pressure [Left] Blood Pressure [Right] O2 Sat by Pulse 97 98 97 Oximetry O2 Sat by Pulse Oximetry [ Bilateral Throughout] 07/27/21 07/27/21 07/27/21 06:27 06:32 06:37 Temperature Pulse Rate 71 69 72 Respiratory Rate Blood Pressure Blood Pressure [Left] Blood Pressure [Right] O2 Sat by Pulse 98 98 98 Oximetry O2 Sat by Pulse Oximetry [ Bilateral Throughout] 07/27/21 07/27/21 07/27/21 06:41 06:42 06:47 Temperature Pulse Rate 60 71 79 Respiratory Rate Blood Pressure 116/69 Blood Pressure [Left] Blood Pressure [Right] O2 Sat by Pulse 97 96 Oximetry O2 Sat by Pulse Oximetry [ Bilateral Throughout] 07/27/21 07/27/21 07/27/21 06:52 06:55 06:57 Temperature Pulse Rate 72 76 83 Respiratory Rate Blood Pressure Blood Pressure [Left] Blood Pressure [Right] O2 Sat by Pulse 97 94 97 Oximetry O2 Sat by Pulse Oximetry [ Bilateral Throughout] 07/27/21 07/27/21 07/27/21 07:02 07:03 07:07 Temperature Pulse Rate 79 83 75 Respiratory Rate Blood Pressure Blood Pressure [Left] Blood Pressure [Right] O2 Sat by Pulse 97 94 97 Oximetry O2 Sat by Pulse Oximetry [ Bilateral Throughout] 07/27/21 07/27/21 07/27/21 07:12 07:15 07:17 Temperature Pulse Rate 81 67 77 Respiratory Rate Blood Pressure 112/73 Blood Pressure [Left] Blood Pressure [Right] O2 Sat by Pulse 99 99 Oximetry O2 Sat by Pulse Oximetry [ Bilateral Throughout] 07/27/21 07/27/21 07/27/21 07:20 07:21 07:22 Temperature 98.9 F Pulse Rate 71 81 Respiratory 18 Rate Blood Pressure Blood Pressure 112/73 [Left] Blood Pressure [Right] O2 Sat by Pulse 99 99 Oximetry O2 Sat by Pulse 99 Oximetry [ Bilateral Throughout] 07/27/21 07/27/21 07/27/21 07:27 07:32 07:37 Temperature Pulse Rate 69 69 71 Respiratory Rate Blood Pressure Blood Pressure [Left] Blood Pressure [Right] O2 Sat by Pulse 99 99 99 Oximetry O2 Sat by Pulse Oximetry [ Bilateral Throughout] 07/27/21 07/27/21 07/27/21 07:42 07:47 07:52 Temperature Pulse Rate 76 75 74 Respiratory Rate Blood Pressure Blood Pressure [Left] Blood Pressure [Right] O2 Sat by Pulse 98 99 99 Oximetry O2 Sat by Pulse Oximetry [ Bilateral Throughout] - Exam Breasts: deferred Cardiovascular: Regular rate Lungs: Normal air movement Abdomen: Present: normal appearance, soft Vulva: both: normal Uterus: Present: normal. Absent: tenderness FHR: auscultation normal, category 1 Uterine Contraction Monitor Mode: External Cervical Dilatation: 4.5 Cervical Effacement Percentage: 50 station: -2 Uterine Contraction Pattern: Regular (soft and nontender at resting between contractions to palpation) Uterine Tone Measurement Phase: Contraction Uterine Contraction Intensity: Moderate Extremities: normal - Labs Labs: Abnormal Labs 07/27/21 01:27 WBC 12.7 H Laboratory Results - last 24 hr 07/27/21 07/27/21 07/27/21 01:27 01:27 01:27 WBC 12.7 H RBC 4.11 Hgb 12.7 Hct 37.2 MCV 91 MCH 31 MCHC 34 RDW 14.4 Plt Count 240 Syphilis IgG Antibody Nonreactive HIV 1&2 Antibody Rapid HIV P24 Antigen Blood Type A POSITIVE Antibody Screen Negative 09/24/21 01:27 WBC RBC Hgb Hct MCV MCH MCHC RDW Plt Count Syphilis IgG Antibody HIV 1&2 Antibody Rapid Non react HIV P24 Antigen Non react Blood Type Antibody Screen
--- NOTE | 2021-07-27 11:17 | Event Note ---
<MARIBEL ALVAREZ - Last Filed: 07/27/21 11:10> Date: 07/27/21 FHT's strip reviewed and significant for variables and one late deceleration. Dr. Nicholas made aware of CAT 2 strip. CNM to bedside for assessment. FHT's with moderate variability and accelerations noted at this time. Pt denies complaints and reports resting and distracting herself as labor coping mechanisms. Nonreassuring FHT's and POC d/w pt and Julia RN at bedside. Risks and benefits of AROM with internal monitor placement discussed in length. Discussed need for continuous monitoring to assess wellbeing. Pt verbalizes understanding and declines AROM with internal monitoring at this time; agrees to SVE. SVE /-2. Continue IOL per protocol. RN requested to notify provider with any changes in pt status and obtain continuous monitoring. <SABINO NICHOLAS - Last Filed: 07/27/21 15:29> Note and tracing reviewed. At time of encounter, patient had returned to Cat 1. CNM discussed AROM and placement of internal monitors, but patient refused at that time.
--- NOTE | 2021-07-27 14:47 | Ultrasound Report ---
ULTRASOUND OBSTETRIC COMPLETE INDICATION / CLINICAL INFORMATION: efw, presentation. Clinical Gestational Age (GA) in weeks.days: 20 weeks 0 days TECHNIQUE: Transabdominal. COMPARISON: None available. FINDINGS: NUMBER: Single PRESENTATION: cephalic CERVIX: Not visualized. PLACENTA: Left lateral grade 1 and free of the os. AMNIOTIC FLUID VOLUME: decreased AMNIOTIC FLUID INDEX (JAE) in cm (if measured): 3.6 cm ANATOMY: Limited visualization of anatomy shows no sonographic abnormality. MEASUREMENTS: - Biparietal Diameter = 9.1 cm = 36, 6 weeks.days - Head Circumference = 32.9 cm = 37, 3 weeks.days - Abdominal Circumference = 31.2 cm = 35, 1 weeks.days - Femur Length = 7.3 cm = 37, 4 weeks.days - Estimated Weight (in grams, if calculated): 2872 g - Heart Rate (beats per minute): 138 bpm ADDITIONAL FINDINGS: None. PERCENTILE ESTIMATED WEIGHT (if calculated): Not calculated. AVERAGE ULTRASOUND AGE (AUA) in weeks.days = 36, 5 IMPRESSION: 1. Single intrauterine with AUA of 36, 5 weeks.days 2. Oligohydramnios with decreased JAE at 3.6 cm. Scribed by: Uma Kumar RDMS, RVT Scribed: 07/27/2021 1:36 PM I have reviewed the images, agree with this report, and edited this report as needed. Signer Name: Arian Wolff MD Signed: 07/27/2021 2:43 PM Workstation Name: [id number]
--- NOTE | 2021-07-27 15:13 | Event Note ---
Date: 07/27/21 To patient bedside for assessment. Noted to be standing at bedside. Complains of contractions, noting they are back to back. Discussed heart tracing. Reviewed with patient that here are moments where baby's heart rate goes down, but it returns to baseline. Currently tracing is Cat 1 without any decelerations, but we need to have closer monitoring to know what is going on with baby in case they are in distress. Discussed need for ROM and placement of internal monitors to have accurate monitoring of FHT. After counseling and discussion that without she would accept risk of possible brain damage or even to fetus without monitoring, patient agreeable. SVE 7/60/-1, ROM with clear fluid, FSE and IUPC placed. Patient tolerated procedure and left in room in stable condition. ADRI Garcia present for entire encounter
[2021-07-27] MEDS ORDERED: SODIUM CHLORIDE 0.9% 1000 ML 1,000 ML VG SCH (16:00)
--- NOTE | 2021-07-27 16:21 | Event Note ---
Date: 07/27/21 Called to patient bedside for FHT decelerations. Cat 2 FHT noted. CNM at bedside completing resuscitative measures. O2 placed, maternal position to left side and pitocin stopped. FHT recovered with mod variability. Amnioinfusion ordered. Restart pit once FHT recovered. POC discussed with patient and ADRI Oneill who was at bedside.
--- NOTE | 2021-07-27 16:32 | Event Note ---
Date: 07/27/21 @1544 CNM reviewing FHT's at nurses station. Dr. Espinoza notified Cat 2 and no nurses at nurses station or in pt's room. CNM immediately to bedside and resuscitation measures initiated. Pt position changed laterally side to side, Pitocin turned off, O2 10L via face mask placed. MD reports she's en route to bedside. MD at bedside and SVE 7cm/unchanged per this CNM examination. Amnioinfusion ordered and Pitocin requested to restart @10ml/hr after 30 mins CAT [address] Espinoza. Plan d/w pt and RN at bedside. Pt and RN verbalize understanding and agreement to POC. All questions and concerns addressed.
--- NOTE | 2021-07-27 20:14 | Procedure Note ---
OB Delivery Note - Delivery Date of Delivery: 07/27/21 Healthcare Recruiter: MARIBEL ALVAREZ Estimated blood loss: 200cc - Vaginal Delivery presentation: vertex Delivery position: OA Intrapartum events: PROM->1hr before delivery, hydramnios, prolonged active phase Delivery induction: oxytocin Delivery augmentation: rupture of membranes Delivery monitor: external FHT, external uterine, internal FHT, internal uterine Route of delivery: Delivery placenta: spontaneous Delivery cord: 3 umbilical vessels Episiotomy: none Delivery laceration: none Anesthesia: none Delivery comments: ODELL present for delivery Counts correct x2 Mother and baby left LDR stable - Infant A at 1 minute: 8 at 5 minutes: 9 Infant Gender: Male (6#11oz)
[2021-07-27] MEDS ORDERED: MAGNESIUM HYDROXIDE (MOM) ORAL LIQD UDC PO PRN (21:01)
[2021-07-27] MEDS ORDERED: WITCH HAZEL/ GLYCERIN PAD TP PRN (21:01)
[2021-07-27] MEDS ORDERED: BENZOCAINE/MENTHOL 20/0.5% TOP SPRAY 56 GM TP PRN (21:01)
[2021-07-27] MEDS ORDERED: LANOLIN/ZINC/DIMETHICONE (LANSINOH) 7 GM TP PRN (21:01)
[2021-07-27] MEDS ORDERED: diphenhydrAMINE 25 MG CAP PO PRN (21:01)
[2021-07-27] MEDS ORDERED: oxyCODONE /ACETAMINOPHEN 5-325MG TAB PO PRN (21:01)
[2021-07-27] MEDS ORDERED: PROMETHAZINE 25 MG TAB PO PRN (21:01)
[2021-07-27] MEDS: IBUPROFEN 800 MG TAB PO SCH (21:37)
[2021-07-28] MEDS: IBUPROFEN 800 MG TAB PO SCH ×2 (05:13→18:00)
[2021-07-28] MEDS ORDERED: TETANUS,DIPH,PERTUSS(ACELL) VACCINE 0.5 ML SYRINGE IM ONE (06:00)
[2021-07-28 08:45] LABS: Hemoglobin 11.7 gm/dl (10.1-14.3)
[2021-07-28] MEDS: PRENATAL VIT27-FE FUMARATE-FOLIC ACID VIT TAB PO SCH (11:57)
[2021-07-28] MEDS: DOCUSATE SODIUM 100 MG CAP PO SCH (11:57)
[2021-07-28] MEDS: FERROUS SULFATE 325 MG TAB PO SCH (11:57)
--- NOTE | 2021-07-28 12:10 | Discharge Summary ---
Providers - Providers Date of Admission: 07/27/21 01:09 Date of discharge: 07/28/21 Attending physician: LAKSHMI SCHAFER 07/27/21 21:01 Consult to Crop Puller [CONS] Routine Reason For Exam: assistance with , SNS Primary care physician: LAKSHMI SCHAFER Hospitalization Reason for admission: Labor Condition: Good Pertinent studies: H&H 11.7/35.0 Procedures: Hospital course: Uncomplicated and course Disposition: 01 HOME / SELF CARE / HOMELESS Final Discharge Diagnosis (Prints w/discharge instructions): Time spent for discharge: 15 - Discharge Diagnoses (1) Normal spontaneous vaginal delivery Status: Acute Comment: rto 4 weeks PP care Core Measure Documentation - Palliative Care Palliative Care/ Comfort Measures: Not Applicable - Core Measures Any of the following diagnoses?: none Exam - Constitutional Vitals: Temp Pulse Resp BP Pulse Ox 98.0 F 99 H 18 97/67 99 07/28/21 07:49 07/28/21 07:49 07/28/21 07:49 07/28/21 07:49 07/28/21 08:15 General appearance: Present: no acute distress, well-nourished - EENT Eyes: Present: PERRL ENT: hearing intact, clear oral mucosa - Neck Neck: Present: supple, normal ROM - Respiratory Respiratory effort: normal Respiratory: bilateral: CTA - Cardiovascular Heart Sounds: Present: S1 & S2. Absent: rub, click - Extremities Extremities: pulses symmetrical, No edema Peripheral Pulses: within normal limits - Abdominal General gastrointestinal: Present: soft, non-tender, non-distended, normal bowel sounds Female genitourinary: Present: normal - Integumentary Integumentary: Present: clear, warm, dry - Musculoskeletal Musculoskeletal: gait normal, strength equal bilaterally - Psychiatric Psychiatric: appropriate mood/affect, intact judgment & insight - Neurologic Neurologic: CNII-XII intact, moves all extremities - Additional findings Additional findings: Fundus firm, lochia scant, breast feeding Plan Activity: no restrictions Diet: regular Follow up with: LAKSHMI SCHAFER MD [Primary Care Provider] - 7 Days (Congratulations! Please call [phone] to schedule your son's circumcision in 1 week and your follow-up in 4 weeks. Bring EMLA cream to your son's visit and wait for further teaching. Please call with any questions or concerns.) Prescriptions: Lidocain2.5%/Prilocai2.5% [Emla] 5 gm TP ONCE PRN #1 tube PRN Reason: Pain Ibuprofen [Motrin 800 MG tab] 800 mg PO Q8HR PRN #30 tablet PRN Reason: Pain
[2021-07-29] MEDS: DOCUSATE SODIUM 100 MG CAP PO SCH (01:30)
[2021-07-29] MEDS: IBUPROFEN 800 MG TAB PO SCH (03:03)
[2021-07-29] MEDS: FERROUS SULFATE 325 MG TAB PO SCH (10:14)
[2021-07-29] MEDS: PRENATAL VIT27-FE FUMARATE-FOLIC ACID VIT TAB PO SCH (10:14)
[2021-07-29 14:47] VITALS: BP 113/71
== END 2021-07-29 16:35 | disposition home or self-care (01) | DRG 775 ==
LOC: TRG 21:45 → APU 21:56 → LD 07-27 01:09 → TRG 07-27 01:09 → OB 07-27 22:17
PROVIDERS: ADMIT Obstetrics & Gynecology; ATTEND Obstetrics & Gynecology
PROC: 10E0XZZ Delivery of Products of Conception, External Approach (ICD-10-PCS; principal; 2021-07-27)
PROC: 10H07YZ Insertion of Other Device into Products of Conception, Via Natural or Artificial Opening (ICD-10-PCS; 2021-07-27)
PROC: 3E033VJ Introduction of Other Hormone into Peripheral Vein, Percutaneous Approach (ICD-10-PCS; 2021-07-27)
PROC: 3E0234Z Introduction of Serum, Toxoid and Vaccine into Muscle, Percutaneous Approach (ICD-10-PCS; 2021-07-28)
DX: O41.03X0 Oligohydramnios, third trimester, not applicable or unspecified (principal); Z37.0 Single live birth; Z3A.40 40 weeks gestation of pregnancy; Z20.822 Contact with and (suspected) exposure to COVID-19; Z23 Encounter for immunization; O76 Abnormality in fetal heart rate and rhythm complicating labor and delivery; O42.02 Full-term premature rupture of membranes, onset of labor within 24 hours of rupture; O40.3XX0 Polyhydramnios, third trimester, not applicable or unspecified
CPT/HCPCS: 36415; 59025; 76816; 76819; 85014; 85018; 85027; 86592; 86850; 86900; 86901; 87806; G0378; A6250; J0290; J2590; J7030; J7120; U0003